=== PATIENT | male | born 1990 | race Caucasian/White ===

== ENCOUNTER 2021-09-21 00:51 | Emergency (ER) | payer SELFPAY ==
[~2021-09-21] VITALS: Ht 180.3 cm; Wt 93.0 kg
[2021-09-21] MEDS ORDERED: ONDANSETRON PF 4 MG/2 ML VIAL. IVP ONE (01:00)
[2021-09-21] MEDS ORDERED: IV NORMAL SALINE 1,000ML 1,000 ML IV ONE ×2 (01:00→02:30)
--- NOTE | 2021-09-21 01:21 | PHYS DOC ---
Past History Past Surgical History: No Surgical History General Adult EDM: Chief Complaint: ABDOMINAL PAIN HPI: HPI: 30-year-old male presents with generalized abdominal pain for 2 days. He said several episodes of vomiting. He feels like he cannot keep anything down and he is getting weaker. He describes the pain as sharp, cramping, pressure. It seems to move around his abdomen. He denies diarrhea. He has had no fever or chills at home. Review of Systems: Review of Systems: Constitutional: Denies fever or chills Eyes: Denies change in visual acuity HENT: Denies nasal congestion or sore throat Respiratory: Denies cough or shortness of breath Cardiovascular: Denies chest pain or edema GI: Lower abdominal pain, nausea, vomiting. : Denies dysuria Musculoskeletal: Denies back pain or joint pain Integument: Denies rash Neurologic: Denies headache, focal weakness or sensory changes Endocrine: Denies polyuria or polydipsia Lymphatic: Denies swollen glands Psychiatric: Denies depression or anxiety Current Medications: Current Meds: Current Medications Medications (Trade) Dose Ordered Sig/Sanjeev Start Time Stop Time Status Last Admin Dose Admin Famotidine (Pepcid Vial) 20 mg 1X ONCE 09/21/21 01:30 09/21/21 01:31 UNV Ondansetron HCl (Zofran) 4 mg 1X ONCE 09/21/21 01:00 09/21/21 01:11 DC 09/21/21 01:16 4 MG Pantoprazole Sodium (Protonix Vial) 40 mg 1X ONCE 09/21/21 01:30 09/21/21 01:31 UNV Sodium Chloride 1,000 ml @ 1,000 mls/hr 1X ONCE 09/21/21 01:00 09/21/21 01:59 09/21/21 01:17 1,000 MLS/HR Allergies: Allergies: Allergies Coded Allergies Type Severity Reaction Last Updated Verified No Known Drug Allergies 09/21/21 No Physical Exam: PE: Constitutional: Well developed, well nourished, no acute distress, non-toxic appearance. [] HENT: Normocephalic, atraumatic, bilateral external ears normal, oropharynx moist, no oral exudates, nose normal. [] Eyes: PERRLA, EOMI, conjunctiva normal, no discharge. [] Neck: Normal range of motion, no tenderness, supple, no stridor. [] Cardiovascular: Heart rate regular rhythm, no murmur [] Lungs & Thorax: Bilateral breath sounds clear to auscultation [] Abdomen: Bowel sounds normal, soft, generalized tenderness, no masses, no pulsatile masses. [] Skin: Warm, dry, no erythema, no rash. [] Back: No tenderness, no CVA tenderness. [] Extremities: No tenderness, no cyanosis, no clubbing, ROM intact, no edema. [] Neurologic: Alert and oriented X 3, normal motor function, normal sensory function, no focal deficits noted. [] Psychologic: Affect normal, judgement normal, mood anxious. [] Current Patient Data: Vital Signs: Vital Signs Date Time Temp Pulse Resp B/P (MAP) Pulse Ox O2 Delivery O2 Flow Rate FiO2 09/21/21 01:00 98.2 64 18 147/91 (109) 98 Room Air EKG: EKG: [] Radiology/Procedures: Radiology/Procedures: [] Impressions: EXAMINATION: CT ABDOMEN+PELVIS W CLINICAL HISTORY: Abdominal pain. TECHNIQUE: CT of the abdomen and pelvis was performed using standard technique, scanning from just above the dome of the diaphragm to the symphysis pubis following administration of intravenous contrast. CT Dose Reduction Employed: One or more of the following individualized dose reduction techniques were utilized for this examination: 1. Automated exposure control 2. Adjustment of the mA and/or kV according to patient size 3. Use of iterative reconstruction technique. COMPARISON: None FINDINGS: Visualized heart and lungs unremarkable. Minimal ill-defined hepatic hypoattenuation along the anterior falciform ligament, likely focal steatosis. Punctate calcifications in the spleen, likely related to old granulomatous disease. Gallbladder, pancreas, adrenal glands, and kidneys unremarkable. Minimally filled urinary bladder. Dilated appendix measuring up to 11 mm in diameter with thickened blair and mild periappendiceal edema. No evidence of appendiceal perforation or periappendiceal abscess. No bowel dilation or wall thickening. No abdominal aortic or iliac artery aneurysm. No evidence of acute osseous abnormality. IMPRESSION: Acute uncomplicated appendicitis. Findings discussed with HELGA BASS DO at 09/21/2021 2:19 AM. Electronically signed by: Maximiliano Cm DO (09/21/2021 2:20 AM) [facility] AND SIGNED BY: MAXIMILIANO CM DO DATE: 09/21/21214 CC: HELGA BASS DO; PCP,MARY ~ Heart Score: C/O Chest Pain: N/A Risk Factors: Risk Factors: DM, Current or recent (<one month) smoker, HTN, HLP, family history of CAD, obesity. Risk Scores: Score 0 - 3: 2.5% MACE over next 6 weeks - Discharge Home Score 4 - 6: 20.3% MACE over next 6 weeks - Admit for Clinical Observation Score 7 - 10: 72.7% MACE over next 6 weeks - Early Invasive Strategies Course & Med Decision Making: Course & Med Decision Making Pertinent Labs and Imaging studies reviewed. (See chart for details) The patient's labs are significant with a white count of 17.5 with a left shift. His CT of the abdomen pelvis shows acute appendicitis without rupture or abscess. I will contact general surgery to [facility] to transfer the patient. We will give the patient pain medication as needed and a dose of Zosyn. I spoke with Dr. Layne, general surgery and he has accepted the patient for transfer to [facility]. I spoke with the hospitalist, Dr. Hazel and he is excepted the patient for transfer. The patient will be transferred by ambulance. [] Dragon Disclaimer: Dragon Disclaimer: This electronic medical record was generated, in whole or in part, using a voice recognition dictation system. Departure Departure: Impression: Primary Impression: Acute appendicitis Qualified Codes: K35.30 - Acute appendicitis with localized peritonitis, without perforation or gangrene Disposition: 02 SHORT TERM HOSPITAL Condition: STABLE Referrals: PCP,NO (PCP) HELGA BASS DO Sep 21, 2021 01:21
[2021-09-21 01:23] LABS: BASO # 0.2 x10^3/uL (0.0-0.2); BASO % 1 % (0-3); EOS % 0 % (0-3); HEMATOCRIT 44.8 % (39.0-53.0); HEMOGLOBIN 15.5 g/dL (13.0-17.5); LYMPH # 1.5 x10^3/uL (1.0-4.8); LYMPH % 9 % (24-48); MEAN CORPUSCULAR HEMOGLOBIN 30 pg (25-35); MEAN CORPUSCULAR HGB CONC 35 g/dL (31-37); MEAN CORPUSCULAR VOLUME 87 fL (79-100); MONO # 1.4 x10^3/uL (0.0-1.1); MONO % 8 % (0-9); NEUT # 14.4 x10^3uL (1.8-7.7); NEUT % 82 % (31-73); PLATELET COUNT 229 x10^3/uL (140-400); RED BLOOD COUNT 5.16 x10^6/uL (4.30-5.70); WHITE BLOOD COUNT 17.5 x10^3/uL (4.0-11.0)
[2021-09-21] MEDS ORDERED: PANTOPRAZOLE IV 40 MG VIAL. IVP ONE (01:30)
[2021-09-21] MEDS ORDERED: FAMOTIDINE 20 MG/2 ML VIAL IVP ONE (01:30)
[2021-09-21 01:36] LABS: CALCIUM 9.5 mg/dL (8.5-10.1); CREATININE 0.9 mg/dL (0.7-1.3); GFR 98.4; POTASSIUM 3.9 mmol/L (3.5-5.1)
[2021-09-21 01:42] LABS: ALBUMIN 4.2 g/dL (3.4-5.0); ALBUMIN/GLOBULIN RATIO 1.1 (1.0-1.7); TOTAL BILIRUBIN 1.2 mg/dL (0.2-1.0); TOTAL PROTEIN 7.9 g/dL (6.4-8.2)
[2021-09-21] MEDS ORDERED: CONTRAST GIVEN. MC PRN (01:45)
[2021-09-21] MEDS ORDERED: IOHEXOL 300 MG/ML 75 ML VIAL. IV ONE (01:45)
[2021-09-21 01:54] LABS: % BANDS 3 % (0-9); % LYMPHS 6 % (24-48); % MONOS 6 % (0-10); % SEGS 85 % (35-66)
[2021-09-21 01:55] LABS: PLT ESTIMATE ADEQUATE (ADEQUATE)
[2021-09-21] MEDS ORDERED: MORPHINE SULFATE 4 MG/ML DISP.SYRIN. ONE (02:09)
[2021-09-21] MEDS ORDERED: diphenhydrAMINE 50 MG/ML VIAL IVP ONE (02:15)
[2021-09-21] MEDS ORDERED: MORPHINE SULFATE 4 MG/ML DISP.SYRIN. IV ONE ×2 (02:15→03:45)
--- NOTE | 2021-09-21 02:22 | RAD ---
EXAMINATION: CT ABDOMEN+PELVIS W CLINICAL HISTORY: Abdominal pain. TECHNIQUE: CT of the abdomen and pelvis was performed using standard technique, scanning from just ab ove the dome of the diaphragm to the symphysis pubis following administration of intravenous contrast . CT Dose Reduction Employed: One or more of the following individualized dose reduction techniques wer e utilized for this examination: 1. Automated exposure control 2. Adjustment of the mA and/or kV ac cording to patient size 3. Use of iterative reconstruction technique. COMPARISON: None FINDINGS: Visualized heart and lungs unremarkable. Minimal ill-defined hepatic hypoattenuation along the anterior falciform ligament, likely focal steat osis. Punctate calcifications in the spleen, likely related to old granulomatous disease. Gallbladder , pancreas, adrenal glands, and kidneys unremarkable. Minimally filled urinary bladder. Dilated appendix measuring up to 11 mm in diameter with thickened blair and mild periappendiceal la nena a. No evidence of appendiceal perforation or periappendiceal abscess. No bowel dilation or wall thickening. No abdominal aortic or iliac artery aneurysm. No evidence of acute osseous abnormality. IMPRESSION: Acute uncomplicated appendicitis. Findings discussed with HELGA BASS DO at 09/21/2021 2:19 AM. Electronically signed by: Maximiliano Pollack DO (09/21/2021 2:20 AM) NATAS[facility]
[2021-09-21] MEDS ORDERED: PIPERACILLIN/TAZOBACTAM 3.375 GM in IV NORMAL SALINE 50ML 50 ML IV ONE (02:30)
[2021-09-21] MEDS ORDERED: HYDR25TA PO (02:33)
[2021-09-21] MEDS ORDERED: SERT100T PO (02:33)
[2021-09-21] MEDS ORDERED: PIPERACILLIN/TAZOBACTAM 3.375 GM VIAL IV ONE (02:38)
[2021-09-21] MEDS ORDERED: IV NORMAL SALINE 50ML 50 ML ONE (02:38)
[2021-09-21 02:41] LABS: BACTERIA,URINE 0 /HPF (0-FEW); CLARITY,URINE CLEAR; COLOR,URINE YELLOW; GLUCOSE,URINE NEG (NEG); NITRITE,URINE NEG (NEG); RBC,URINE 0 /HPF (0-2); SQUAMOUS EPITHELIAL CELL,UR OCC /LPF; UROBILINOGEN,URINE 0.2 mg/dL (0.2 mg/dL); WBC,URINE OCC /HPF (0-4)
[2021-09-21 02:45] VITALS: BP 161/94
== END 2021-09-21 03:56 | disposition short-term general hospital (02) ==
LOC: ER 00:51
DX: K35.30 Acute appendicitis with localized peritonitis, without perforation or gangrene (principal); Z20.822 Contact with and (suspected) exposure to COVID-19
CPT/HCPCS: 36415; 74177; 80053; 81001; 83690; 85007; 85025; 87426; 96361; 96365; 96375; 96376; 99285; C9113; J1200; J2270; J2405; J2543; J3490; J7030; Q9967